=== PATIENT | female | born 1995 | race Caucasian/White ===

== ENCOUNTER 2020-09-26 15:56 | Emergency (ER) | payer MEDICAID, SELFPAY ==
[2020-09-26 16:15] VITALS: PULSE 65; RESP 16; O2SAT 98; BMI 19.3
[2020-09-26] MEDS: Naloxone HCl Nasal 4 MG SPRAY NOSTRILALT (16:25)
--- NOTE | 2020-09-26 16:33 | PC.NURSE ---
PT OBTUNDED UPON ARRIVAL TO ED. DIFFICULT TO ROUSE. PER EMS, PT A&OX3, TALKATIVE, DURING TRANSPORT WITH SPO2 >95% ON RA. NARCAN'D UPON ARRIVAL, NOW IN PRECIPITATED WD'S. UNCOOPERATIVE WITH CHANGEOVER, SEARCHED WITH SECURITY PRESENT.
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
[2020-09-26 17:50] VITALS: BP 119/78; PULSE 84; RESP 20; TEMP 37.1; O2SAT 99
[2020-09-26 18:28] VITALS: BP 98/60; PULSE 68; RESP 14; O2SAT 97
[2020-09-26 20:00] VITALS: BP 96/61; PULSE 62; RESP 16; TEMP 36.6; O2SAT 99
--- NOTE | 2020-09-26 20:42 | MHC.RECOVSUP ---
? Reason for consult Support o Current location: [id number] o Identified substance use concern: Heroin <del>-</del> <del>Overdose</del> <del>-</del> <del>Withdrawal</del> <del>-</del> <del>Seeking</del> <del>ATS</del> <del>(detox)</del> <del>-</del> <del>Support</del> <del>?</del> <del>Intervention:</del> <del>o</del> <del>ATS</del> <del>bed</del> <del>search</del> <del>started/completed/in</del> <del>process</del> <del>o</del> <del>MAT</del> <del>started</del> <del>or</del> <del>to</del> <del>be</del> <del>started</del> <del>o</del> <del>Community</del> <del>resources</del> <del>provided</del> <del>o</del> <del>Harm</del> <del>reduction</del> <del>discussion</del> <del>?</del> <del>Plan:</del> <del>o</del> <del>Referral</del> <del>to</del> <del>[facility]</del> <del>o</del> <del>Bed</del> <del>search</del> <del>in</del> <del>progress</del> <del>to</del> <del>o</del> <del>Follow</del> <del>up</del> <del>tomorrow</del> <del>o</del> <del>Patient</del> <del>awaiting</del> <del>crisis</del> <del>evaluation</del> <del>o</del> <del>Patient</del> <del>to</del> <del>follow</del> <del>up</del> <del>with</del> <del>[facility]</del> <del>after</del> <del>discharge</del> ? Additional information:Patient refused services
--- NOTE | 2020-09-26 20:52 | PC.NURSE ---
Pt has been fully awake, eating for approx 35-40 mins. Pt eloped from emergency room after angrily demanding paperwork.
== END 2020-09-26 20:53 | disposition home or self-care (01) ==
PROVIDERS: Emergency Provider Emergency Medicine Emergency Medical Services
DX: T50.901A Poisoning by unspecified drugs, medicaments and biological substances, accidental (unintentional), initial encounter (principal); Y92.9 Unspecified place or not applicable; F11.90 Opioid use, unspecified, uncomplicated; F12.90 Cannabis use, unspecified, uncomplicated; F13.90 Sedative, hypnotic, or anxiolytic use, unspecified, uncomplicated
CPT/HCPCS: 99284

== ENCOUNTER 2020-10-30 09:41 | Emergency (ER) | payer MEDICAID, SELFPAY | END 2020-10-30 10:09 | disposition left against medical advice (07) | PROVIDERS: Emergency Provider Emergency Medicine | DX: F19.239 Other psychoactive substance dependence with withdrawal, unspecified (principal) ==

== ENCOUNTER 2020-11-14 21:46 | Emergency (ER) | payer MEDICAID, SELFPAY ==
--- NOTE | ~2020-11-14 | XR_ITS ---
EXAMINATION: XR HAND, RIGHT CLINICAL INFORMATION: infection with question of foreign body COMPARISON: None TECHNIQUE: PA, lateral, and oblique views of the right hand. FINDINGS: A skin defect is seen on the ulnar side of wrist no foreign bodies are seen. Osseous structures appear normal. No subcutaneous gas is seen. XR/XR hand RT 2V IMPRESSION: No evidence of foreign body
[2020-11-14 22:02] VITALS: BP 86/67; PULSE 97; RESP 16; TEMP 37.4; O2SAT 97; BMI 22.6
[2020-11-14 22:47] VITALS: BP 113/68; PULSE 90; RESP 16; TEMP 37.4; O2SAT 98
--- NOTE | 2020-11-15 00:07 | PC.NURSE ---
Pt refusing IV and labs. Shara, RN at bedside with U/S, pt not agreeable to U/S IV at this time. MD offering to place and EJ in pts neck, pt also refusing that as well. Pt provided with food/drink per request. Pt considering IV at this time, this RN to check back.
--- NOTE | 2020-11-15 00:15 | PC.NURSE ---
Pt continues refusing IV/lab work. Pt medicated with PO ABX, resting in bed at this time.
[2020-11-15 00:17] LABS: Glucose Urine UA NEG (NEG); Leukocyte Esterase Urine 1+ (NEG); Nitrite Urine POS (NEG); PH 6.5 (5.0-8.0); UACC Culture Trigger YES; Urine Blood NEG (NEG); Urine Ketones NEG (NEG); Urine Protein TRACE MG/DL (NEG-TRACE)
[2020-11-15 00:18] LABS: Appearance Urine CLOUDY; Color Urine YELLOW
[2020-11-15 00:19] LABS: UPreg QC Valid YES; Urine Pregnancy NEGATIVE (NEGATIVE)
[2020-11-15 00:21] VITALS: BP 99/59; PULSE 77; RESP 16; O2SAT 98
[2020-11-15 00:25] LABS: Bacteria Urine 4+ /LPF; RBC Urine 0-2 /HPF (0); Squamous Epithelial Cell Urine 2+ /LPF
--- NOTE | 2020-11-15 00:46 | PC.NURSE ---
Pt agreeable to a Care Team consult but continues refusing care for abscess at this time. Pt transferred to 18H to await consult in the morning.
[2020-11-15 00:47] LABS: Amphetamine Screen Urine Not Detected (Not Detect); Barbiturates, Urine Not Detected (Not Detect); Benzodiazepines Screen Urine Not Detected (Not Detect); Cannabinoid Screen Urine POSITIVE (Not Detect); Cocaine Screen Urine POSITIVE (Not Detect); Opiate Screen Urine POSITIVE (Not Detect); Phencyclidine Screen Urine Not Detected (Not Detect)
--- NOTE | 2020-11-15 01:08 | PC.NURSE ---
All labs cancelled as pt is refusing.
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
--- NOTE | 2020-11-15 06:13 | PC.NURSE ---
Pt sleeping throughout the night in NAD, visible chest rise noted. Pt aware of plan for CM consult in the morning if agreeable.
--- NOTE | 2020-11-15 08:17 | PC.NURSE ---
Dressing applied to right hand, d/c given with resources. Pt declines anything else offered, even juice.
== END 2020-11-15 09:04 | disposition home or self-care (01) ==
PROVIDERS: Emergency Provider Emergency Medicine; PCP Internal Medicine
DX: L03.113 Cellulitis of right upper limb (principal); F19.10 Other psychoactive substance abuse, uncomplicated; Z91.410 Personal history of adult physical and sexual abuse
CPT/HCPCS: 73120; 80307; 81001; 81025; 87086; 87088; 87186; 99283; 99284

== ENCOUNTER 2020-11-28 01:43 | Emergency (ER) | payer MEDICAID, SELFPAY ==
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
[2020-11-28 02:39] VITALS: BP 114/80; PULSE 85; O2SAT 99; BMI 21.9
[2020-11-28 02:45] VITALS: BP 95/47; PULSE 68; RESP 14
[2020-11-28 02:49] LABS: Glucose, Whole Blood 89 mg/dL (60-115)
[2020-11-28 03:39] VITALS: BP 90/45
[2020-11-28 04:25] LABS: Imm Gran Abs Auto 0.01 X10*3/uL (0.00-0.03); Imm Gran Pct Auto 0.1 % (0.0-0.4); MANUAL DIFF FLAG SCAN; PLT CLUMP 1; Red Blood Count 3.69 X10*6/uL (4.20-5.50); SCAN SMEAR FLAG 1
[2020-11-28 04:26] LABS: Basophils Percent Auto 0.1 % (0-2); Eosinophils Absolute Auto 0.1 X10*3/uL (0.0-0.4); Eosinophils Percent Auto 1.9 % (0-4); Hematocrit 32.3 % (37-47); Hemoglobin 10.4 g/dl (12.0-16.0); Lymphocytes Absolute Auto 2.3 X10*3/uL (1.2-4.9); Lymphocytes Percent Auto 33.7 % (20-40); Mean Corpuscular HGB Conc 32.2 g/dl (31.0-35.0); Mean Corpuscular Hemoglobin 28.2 pg (27.0-33.0); Mean Corpuscular Volume 87.5 fL (80-98); Mean Platelet Volume 11.3 fL (9.4-12.3); Monocytes Absolute Auto 0.4 X10*3/uL (0.1-1.2); Monocytes Percent Auto 5.5 % (2-11); Neutrophils Percent Auto 58.7 % (45-73); Platelet Count 200 X10*3/uL (160-400); Red Cell Distribution Width 13.5 % (11.0-16.0); White Blood Count 6.8 X10*3/uL (4.8-10.8)
[2020-11-28 04:29] LABS: SLIDE REVIEW VERIFIED
[2020-11-28 04:33] LABS: Prothrombin Time 10.9 SEC (9.9-13.0)
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
[2020-11-28 06:16] LABS: Glucose Urine UA NEG (NEG); Leukocyte Esterase Urine 1+ (NEG); Nitrite Urine NEG (NEG); UACC Culture Trigger YES; Urine Blood 2+ (NEG); Urine Ketones NEG (NEG); Urine Protein NEG (NEG-TRACE)
[2020-11-28 06:18] LABS: Appearance Urine HAZY; Color Urine YELLOW
[2020-11-28 06:19] LABS: UPreg QC Valid YES; Urine Pregnancy NEGATIVE (NEGATIVE)
[2020-11-28 06:30] LABS: Bacteria Urine 4+ /LPF; Squamous Epithelial Cell Urine 1+ /LPF
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
--- NOTE | 2020-11-28 08:30 | MHC.RECOVRN ---
T/w asked to meet with pt due to pt reporting withdrawal symptoms and possibly looking for ATS. Pt irritable when t/w asking questions, reports using heroin IV. Pt declines ATS referral, Suboxone initiation, Lyft to [facility] [place]. Pt plans to dc to community. Pt provided with t/w contact information if needed.
[2020-11-28 08:33] VITALS: RESP 16
[2020-11-28] MEDS: cephALEXin 500 MG CAPSULE PO (08:33)
--- NOTE | 2020-11-28 08:44 | PC.NURSE ---
patient requesting assistance with her withdrawal symptoms at time of dc, asking for ativan. acid recovery operator kelin went to see patient. patient declined services and would like to leave ED. discharge papers given.
== END 2020-11-28 08:46 | disposition home or self-care (01) ==
LOC: HO.ED 08:30
PROVIDERS: Emergency Provider Student in an Organized Health Care Education/Training Program; PCP Internal Medicine
DX: T76.21XA Adult sexual abuse, suspected, initial encounter (principal); N39.0 Urinary tract infection, site not specified; F19.10 Other psychoactive substance abuse, uncomplicated
CPT/HCPCS: 36415; 70450; 71250; 72125; 74176; 80053; 81001; 81025; 82947; 84702; 85025; 85610; 87086; 87088; 87186; 96360; 96361; 99284